=== PATIENT | male | born 1980 | race Asian ===

== ENCOUNTER 2017-11-19 23:35 | Emergency (ER) | payer OTHER | END 2017-11-20 00:46 | disposition home or self-care (01) | LOC: E/R 23:35 | DX: T82.838A Hemorrhage due to vascular prosthetic devices, implants and grafts, initial encounter (principal); I10 Essential (primary) hypertension; I25.10 Atherosclerotic heart disease of native coronary artery without angina pectoris; F17.210 Nicotine dependence, cigarettes, uncomplicated; Y82.8 Other medical devices associated with adverse incidents; Z95.1 Presence of aortocoronary bypass graft | CPT/HCPCS: 99282; Z7502 ==

== ENCOUNTER 2017-11-29 06:43 | Inpatient (IN) | payer OTHER ==
[2017-11-29 07:24] LABS: ADD MAN DIFF? NO
[2017-11-29 07:34] LABS: ABNORMAL IP MESSAGE 1; BASOPHILS % 0.6 % (0.0-2.0); EOSINOPHILS # 0.3 10^3/ul (0.0-0.5); EOSINOPHILS % 5.9 % (0.0-7.0); HEMATOCRIT 34.6 % (42.0-52.0); HEMOGLOBIN 10.6 g/dl (14.0-18.0); LYMPHOCYTES # 0.8 10^3/ul (0.8-2.9); LYMPHOCYTES % 16.3 % (15.0-51.0); MEAN CORPUSCULAR HEMOGLOBIN 31.7 pg (29.0-33.0); MEAN CORPUSCULAR HGB CONC 30.6 g/dl (32.0-37.0); MEAN CORPUSCULAR VOLUME 103.6 fl (82.0-101.0); MONOCYTES % 20.2 % (0.0-11.0); NEUTROPHIL # 2.8 10^3/ul (1.6-7.5); NEUTROPHILS % 56.8 % (39.0-77.0); PLATELET COUNT 85 10^3/UL (140-415); POSITIVE DIFF @See below; RED BLOOD COUNT 3.34 10^6/ul (4.70-6.10); RED CELL DISTRIBUTION WIDTH 14.6 % (11.5-14.5)
[2017-11-29 07:34] LABS: WHITE BLOOD COUNT 4.9 10^3/ul (4.8-10.8)
[2017-11-29 07:51] LABS: ALANINE AMINOTRANSFERASE 15 IU/L (13-69); ALBUMIN 3.6 g/dl (3.3-4.9); ALBUMIN/GLOBULIN RATIO 0.75; ALKALINE PHOSPHATASE 109 IU/L (42-121); ANION GAP 19 (8-16); ASPARTATE AMINO TRANSFERASE 19 IU/L (15-46); BILIRUBIN,INDIRECT 0.1 mg/dl (0-1.1); BILIRUBIN,TOTAL 0.1 mg/dl (0.2-1.3); BLOOD UREA NITROGEN 68 mg/dl (7-20); CALCIUM 8.7 mg/dl (8.4-10.2); CARBON DIOXIDE 19 mmol/L (21-31); CHLORIDE 110 mmol/L (97-110); CREATININE 9.81 mg/dl (0.61-1.24); GLUCOSE 85 mg/dl (70-220); POTASSIUM 5.6 mmol/L (3.5-5.1); SODIUM 142 mmol/L (135-144); TOTAL PROTEIN 8.4 g/dl (6.1-8.1)
[2017-11-29 08:02] LABS: TROPONIN-I 0.085 ng/ml (0.000-0.120)
[2017-11-29] MEDS: ALBUTEROL 0.083% (NEB) 2.5 MG/3 ML AMP NEB (08:08)
[2017-11-29] MEDS ORDERED: ACETAMINOPHEN 325 MG TAB PO ×2 (09:30→12:00)
[2017-11-29] MEDS ORDERED: ONDANSETRON 4 MG INJ IV ×2 (09:30→12:00)
[2017-11-29] MEDS: ACETAMINOPHEN 325 MG TAB PO (10:40)
[2017-11-29] MEDS ORDERED: morphine 2 MG INJ IV (12:00)
[2017-11-29] MEDS ORDERED: NACL 0.9% 3 ML SYG IV (12:00)
[2017-11-29] MEDS: LISINOPRIL 10 MG TAB PO (13:00)
[2017-11-29] MEDS: CALCIUM ACETATE 667 MG CAP PO ×2 (13:53→19:57)
[2017-11-29] MEDS: FAMOTIDINE 20 MG INJ IV (13:53)
[2017-11-29] MEDS: ASPIRIN (EC) 81 MG TAB PO (13:54)
[2017-11-29] MEDS: HEPARIN 5,000 UNIT/0.5 ML VIAL SC (13:55)
[2017-11-29 16:04] LABS: HEPATITIS B SURFACE ANTIBODY NEGATIVE (NEGATIVE)
[2017-11-29 16:10] LABS: HEPATITIS B SURFACE ANTIGEN NEGATIVE (NEGATIVE)
[2017-11-29] MEDS: HEPARIN 1000 UNITS/ML 10 ML INJ CATHETER (18:37)
[2017-11-29] MEDS ORDERED: morphine LIQ (10 MG/5 ML) CUP PO (20:00)
[2017-11-29] MEDS ORDERED: ATORVASTATIN 40 MG TAB PO (21:00)
[2017-11-29] MEDS ORDERED: VALPROIC ACID 250 MG CAP PO (21:00)
[2017-11-30] MEDS ORDERED: METOLAZONE 5 MG TAB PO (09:00)
[2017-11-30] MEDS ORDERED: FAMOTIDINE 20 MG INJ IV (09:00)
== END 2017-11-29 21:17 | disposition short-term general hospital (02) | DRG 186 ==
LOC: E/R 06:43 → MS3 09:08
PROC: 5A1D70Z Performance of Urinary Filtration, Intermittent, Less than 6 Hours Per Day (ICD-10-PCS; principal; 2017-11-29)
DX: J90 Pleural effusion, not elsewhere classified (principal); N18.6 End stage renal disease; I12.0 Hypertensive chronic kidney disease with stage 5 chronic kidney disease or end stage renal disease; Z99.2 Dependence on renal dialysis; I25.10 Atherosclerotic heart disease of native coronary artery without angina pectoris; Z95.1 Presence of aortocoronary bypass graft; F17.200 Nicotine dependence, unspecified, uncomplicated; Z86.73 Personal history of transient ischemic attack (TIA), and cerebral infarction without residual deficits; E87.5 Hyperkalemia; E87.70 Fluid overload, unspecified
CPT/HCPCS: 36415; 71045; 80053; 84484; 85025; 86706; 87340; 90935; 93005; 94664; 99285-25

== ENCOUNTER 2017-12-24 09:46 | Inpatient (IN) | payer OTHER ==
[2017-12-24] MEDS: SOD CHLORIDE 0.9% 1,000 ML IV (10:32)
[2017-12-24] MEDS: ACETAMINOPHEN 325 MG TAB PO (10:32)
[2017-12-24] MEDS: CEFEPIME 2GM/50 ML (PMX) 50 ML IVPB (10:32)
[2017-12-24 10:41] LABS: ADD MAN DIFF? NO
[2017-12-24 10:44] LABS: WHITE BLOOD COUNT 7.9 10^3/ul (4.8-10.8)
[2017-12-24 10:44] LABS: ABNORMAL IP MESSAGE 1; BASOPHILS % 0.3 % (0.0-2.0); EOSINOPHILS # 0.2 10^3/ul (0.0-0.5); EOSINOPHILS % 1.9 % (0.0-7.0); HEMATOCRIT 33.6 % (42.0-52.0); HEMOGLOBIN 10.3 g/dl (14.0-18.0); LYMPHOCYTES # 0.4 10^3/ul (0.8-2.9); LYMPHOCYTES % 5.3 % (15.0-51.0); MEAN CORPUSCULAR HEMOGLOBIN 32.4 pg (29.0-33.0); MEAN CORPUSCULAR HGB CONC 30.7 g/dl (32.0-37.0); MEAN CORPUSCULAR VOLUME 105.7 fl (82.0-101.0); MEAN PLATELET VOLUME 9.6 fl (7.4-10.4); MONOCYTE # 0.9 10^3/ul (0.3-0.9); MONOCYTES % 11.6 % (0.0-11.0); NEUTROPHIL # 6.4 10^3/ul (1.6-7.5); NEUTROPHILS % 80.5 % (39.0-77.0); PLATELET COUNT 122 10^3/UL (140-415); POSITIVE DIFF @See below; RED BLOOD COUNT 3.18 10^6/ul (4.70-6.10)
[2017-12-24 11:03] LABS: ALANINE AMINOTRANSFERASE 6 IU/L (13-69); ALBUMIN 3.3 g/dl (3.3-4.9); ALBUMIN/GLOBULIN RATIO 0.73; ALKALINE PHOSPHATASE 59 IU/L (42-121); ANION GAP 16 (8-16); ASPARTATE AMINO TRANSFERASE 18 IU/L (15-46); BILIRUBIN,INDIRECT 0.2 mg/dl (0-1.1); BILIRUBIN,TOTAL 0.2 mg/dl (0.2-1.3); BLOOD UREA NITROGEN 62 mg/dl (7-20); CARBON DIOXIDE 17 mmol/L (21-31); CHLORIDE 111 mmol/L (97-110); CREATININE 10.69 mg/dl (0.61-1.24); GLUCOSE 85 mg/dl (70-220); INR 1.11; PARTIAL THROMBOPLASTIN TIME 34.9 Sec (25.0-35.0); POTASSIUM 5.6 mmol/L (3.5-5.1); PROTIME 14.5 Sec (11.9-14.9); PT RATIO 1.1; SODIUM 138 mmol/L (135-144); TOTAL PROTEIN 7.8 g/dl (6.1-8.1)
[2017-12-24 11:03] LABS: LACTIC ACID 1.3 mmol/L (0.5-2.0)
[2017-12-24] MEDS: VANCOMYCIN 1 GM (PMX) 250 ML IVPB (11:05)
[2017-12-24 11:16] LABS: TROPONIN-I 0.085 ng/ml (0.000-0.120)
[2017-12-24 12:26] LABS: LACTIC ACID 0.8 mmol/L (0.5-2.0)
[2017-12-24] MEDS ORDERED: ACETAMINOPHEN 325 MG TAB PO (13:00)
[2017-12-24] MEDS ORDERED: ONDANSETRON 4 MG INJ IV (13:00)
[2017-12-24 14:18] LABS: LACTIC ACID 0.7 mmol/L (0.5-2.0)
[2017-12-24] MEDS ORDERED: VANCOMYCIN IV PER PHARMACY XX (17:00)
[2017-12-24] MEDS: ATORVASTATIN 40 MG TAB PO (20:30)
[2017-12-24] MEDS: CALCIUM ACETATE 667 MG CAP PO (20:30)
[2017-12-24] MEDS: VALPROIC ACID 250 MG CAP PO (20:31)
[2017-12-25] MEDS: LISINOPRIL 10 MG TAB PO (08:17)
[2017-12-25] MEDS: CALCIUM ACETATE 667 MG CAP PO ×2 (08:47→20:09)
[2017-12-25] MEDS: ASPIRIN (EC) 81 MG TAB PO (08:48)
[2017-12-25] MEDS: VALPROIC ACID 250 MG CAP PO ×2 (11:26→20:09)
[2017-12-25] MEDS: ALBUMIN HUMAN 25% 100 ML IV (11:39)
[2017-12-25] MEDS: HEPARIN 1000 UNITS/ML 10 ML INJ CATHETER (14:14)
[2017-12-25] MEDS: CEFEPIME 2GM/50 ML (PMX) 50 ML IVPB (14:17)
[2017-12-25] MEDS: MIDODRINE 5 MG TAB PO (18:00)
[2017-12-25] MEDS: ACETAMINOPHEN 325 MG TAB PO (20:09)
[2017-12-25] MEDS: ATORVASTATIN 40 MG TAB PO (21:00)
[2017-12-26 05:43] LABS: ADD MAN DIFF? NO
[2017-12-26 06:06] LABS: ABNORMAL IP MESSAGE 1; BASOPHILS % 0.3 % (0.0-2.0); EOSINOPHILS # 0.6 10^3/ul (0.0-0.5); EOSINOPHILS % 7.6 % (0.0-7.0); HEMATOCRIT 29.4 % (42.0-52.0); HEMOGLOBIN 8.9 g/dl (14.0-18.0); LYMPHOCYTES # 0.6 10^3/ul (0.8-2.9); LYMPHOCYTES % 7.1 % (15.0-51.0); MEAN CORPUSCULAR HGB CONC 30.3 g/dl (32.0-37.0); MEAN CORPUSCULAR VOLUME 105.8 fl (82.0-101.0); MEAN PLATELET VOLUME 9.9 fl (7.4-10.4); MONOCYTE # 1.7 10^3/ul (0.3-0.9); MONOCYTES % 21.6 % (0.0-11.0); NEUTROPHILS % 63.1 % (39.0-77.0); PLATELET COUNT 96 10^3/UL (140-415); POSITIVE DIFF @See below; RED BLOOD COUNT 2.78 10^6/ul (4.70-6.10); RED CELL DISTRIBUTION WIDTH 15.2 % (11.5-14.5)
[2017-12-26 06:06] LABS: WHITE BLOOD COUNT 7.9 10^3/ul (4.8-10.8)
[2017-12-26 06:10] LABS: INR 1.17; PROTIME 15.1 Sec (11.9-14.9); PT RATIO 1.2
[2017-12-26 06:10] LABS: VANCOMYCIN,RANDOM 7.8 ug/ml
[2017-12-26 06:11] LABS: PARTIAL THROMBOPLASTIN TIME 43.3 Sec (25.0-35.0)
[2017-12-26 06:16] LABS: ALANINE AMINOTRANSFERASE 7 IU/L (13-69); ALBUMIN 3.1 g/dl (3.3-4.9); ALBUMIN/GLOBULIN RATIO 0.77; ALKALINE PHOSPHATASE 55 IU/L (42-121); ANION GAP 13 (8-16); ASPARTATE AMINO TRANSFERASE 15 IU/L (15-46); BLOOD UREA NITROGEN 58 mg/dl (7-20); CALCIUM 8.7 mg/dl (8.4-10.2); CARBON DIOXIDE 24 mmol/L (21-31); CHLORIDE 107 mmol/L (97-110); CREATININE 8.63 mg/dl (0.61-1.24); GLUCOSE 82 mg/dl (70-220); POTASSIUM 4.7 mmol/L (3.5-5.1); SODIUM 139 mmol/L (135-144); TOTAL PROTEIN 7.1 g/dl (6.1-8.1)
[2017-12-26] MEDS: LIDOCAINE 1% (MDV) 10 ML INJ (10:33)
[2017-12-26] MEDS: CEFEPIME 2GM/50 ML (PMX) 50 ML IVPB (11:14)
[2017-12-26] MEDS: VALPROIC ACID 250 MG CAP PO ×2 (11:15→20:10)
[2017-12-26] MEDS: CALCIUM ACETATE 667 MG CAP PO ×2 (11:16→20:10)
[2017-12-26] MEDS: MIDODRINE 5 MG TAB PO ×2 (11:16→17:39)
[2017-12-26] MEDS: ASPIRIN (EC) 81 MG TAB PO (11:16)
[2017-12-26 12:47] LABS: FLD MN% 8.2 %; FLD PMN% 91.8 %; FLD RBC 32000 /uL; FLD WBC 2541 /cmm
[2017-12-26 13:06] LABS: FLD CLARITY CLOUDY; FLD COLOR RED
[2017-12-26 13:06] LABS: FLD TYPE THORACENTHESIS
[2017-12-26] MEDS: VANCOMYCIN 1.25 GM in SOD CHLORIDE 0.9% 250 ML IVPB (14:46)
[2017-12-26] MEDS: ATORVASTATIN 40 MG TAB PO (20:10)
[2017-12-27] MEDS: VALPROIC ACID 250 MG CAP PO ×2 (09:01→20:27)
[2017-12-27] MEDS: CALCIUM ACETATE 667 MG CAP PO ×2 (09:01→20:27)
[2017-12-27] MEDS: ASPIRIN (EC) 81 MG TAB PO (09:01)
[2017-12-27] MEDS: MIDODRINE 5 MG TAB PO ×2 (09:12→17:00)
[2017-12-27] MEDS: CEFEPIME 2GM/50 ML (PMX) 50 ML IVPB (09:14)
[2017-12-27] MEDS: HEPARIN 1000 UNITS/ML 10 ML INJ CATHETER (13:44)
[2017-12-27] MEDS: ATORVASTATIN 40 MG TAB PO (20:27)
[2017-12-27] MEDS: morphine 2 MG INJ IV (21:47)
[2017-12-27] MEDS: ZOLPIDEM 5 MG TAB PO (21:51)
[2017-12-28] MEDS: morphine 2 MG INJ IV ×2 (06:46→15:31)
[2017-12-28] MEDS: VALPROIC ACID 250 MG CAP PO ×2 (08:31→20:06)
[2017-12-28] MEDS: ASPIRIN (EC) 81 MG TAB PO (08:31)
[2017-12-28] MEDS: CALCIUM ACETATE 667 MG CAP PO ×2 (08:32→20:06)
[2017-12-28] MEDS: CEFEPIME 2GM/50 ML (PMX) 50 ML IVPB (08:33)
[2017-12-28] MEDS: ATORVASTATIN 40 MG TAB PO (20:06)
[2017-12-28] MEDS: morphine LIQ (10 MG/5 ML) CUP PO (20:07)
[2017-12-28] MEDS: ZOLPIDEM 5 MG TAB PO (21:30)
[2017-12-29 05:55] LABS: ADD MAN DIFF? NO
[2017-12-29 05:57] LABS: WHITE BLOOD COUNT 5.4 10^3/ul (4.8-10.8)
[2017-12-29 05:57] LABS: BASOPHILS % 0.7 % (0.0-2.0); EOSINOPHILS # 1.1 10^3/ul (0.0-0.5); EOSINOPHILS % 20.3 % (0.0-7.0); HEMATOCRIT 28.9 % (42.0-52.0); HEMOGLOBIN 8.6 g/dl (14.0-18.0); LYMPHOCYTES % 19.1 % (15.0-51.0); MEAN CORPUSCULAR HEMOGLOBIN 31.7 pg (29.0-33.0); MEAN CORPUSCULAR HGB CONC 29.8 g/dl (32.0-37.0); MEAN CORPUSCULAR VOLUME 106.6 fl (82.0-101.0); MEAN PLATELET VOLUME 10.5 fl (7.4-10.4); MONOCYTE # 0.9 10^3/ul (0.3-0.9); MONOCYTES % 17.5 % (0.0-11.0); NEUTROPHIL # 2.3 10^3/ul (1.6-7.5); NEUTROPHILS % 41.8 % (39.0-77.0); PLATELET COUNT 101 10^3/UL (140-415); RED BLOOD COUNT 2.71 10^6/ul (4.70-6.10); RED CELL DISTRIBUTION WIDTH 14.6 % (11.5-14.5)
[2017-12-29 06:29] LABS: ANION GAP 14 (8-16); BLOOD UREA NITROGEN 80 mg/dl (7-20); CALCIUM 8.8 mg/dl (8.4-10.2); CARBON DIOXIDE 24 mmol/L (21-31); CHLORIDE 107 mmol/L (97-110); CREATININE 10.26 mg/dl (0.61-1.24); GLUCOSE 81 mg/dl (70-220); POTASSIUM 5.2 mmol/L (3.5-5.1); SODIUM 140 mmol/L (135-144)
[2017-12-29] MEDS: morphine LIQ (10 MG/5 ML) CUP PO (08:00)
[2017-12-29] MEDS: ASPIRIN (EC) 81 MG TAB PO (09:08)
[2017-12-29] MEDS: CALCIUM ACETATE 667 MG CAP PO ×2 (09:09→20:29)
[2017-12-29] MEDS: CEFEPIME 2GM/50 ML (PMX) 50 ML IVPB (09:10)
[2017-12-29] MEDS: VALPROIC ACID 250 MG CAP PO ×2 (09:10→20:30)
[2017-12-29] MEDS: HYDROmorphONE 2 MG TAB PO ×2 (12:20→20:30)
[2017-12-29 12:26] LABS: HEPATITIS B SURFACE ANTIGEN NEGATIVE (NEGATIVE)
[2017-12-29] MEDS: ALBUMIN HUMAN 25% 100 ML IV (16:10)
[2017-12-29] MEDS: HEPARIN 1000 UNITS/ML 10 ML INJ CATHETER (18:36)
[2017-12-29] MEDS: VANCOMYCIN 1.25 GM in SOD CHLORIDE 0.9% 250 ML IVPB (19:48)
[2017-12-29] MEDS: ATORVASTATIN 40 MG TAB PO (20:29)
[2017-12-29] MEDS: ZOLPIDEM 5 MG TAB PO (21:49)
[2017-12-30] MEDS: HYDROmorphONE 2 MG TAB PO ×5 (01:46→21:17)
[2017-12-30] MEDS: VALPROIC ACID 250 MG CAP PO ×3 (03:10→21:00)
[2017-12-30] MEDS: CALCIUM ACETATE 667 MG CAP PO ×2 (09:53→21:18)
[2017-12-30] MEDS: ASPIRIN (EC) 81 MG TAB PO (09:53)
[2017-12-30] MEDS: CEFEPIME 2GM/50 ML (PMX) 50 ML IVPB (10:00)
[2017-12-30 15:36] LABS: VALPROATE 51 ug/ml (50-100)
[2017-12-30] MEDS: ATORVASTATIN 40 MG TAB PO (21:17)
[2017-12-31] MEDS: HYDROmorphONE 2 MG TAB PO ×5 (03:02→22:59)
[2017-12-31 05:52] LABS: ADD MAN DIFF? NO
[2017-12-31 05:56] LABS: WHITE BLOOD COUNT 6.6 10^3/ul (4.8-10.8)
[2017-12-31 05:56] LABS: BASOPHILS % 0.5 % (0.0-2.0); EOSINOPHILS % 15.3 % (0.0-7.0); HEMOGLOBIN 7.6 g/dl (14.0-18.0); LYMPHOCYTES # 1.3 10^3/ul (0.8-2.9); MEAN CORPUSCULAR HEMOGLOBIN 31.5 pg (29.0-33.0); MEAN CORPUSCULAR HGB CONC 29.2 g/dl (32.0-37.0); MEAN CORPUSCULAR VOLUME 107.9 fl (82.0-101.0); MEAN PLATELET VOLUME 10.5 fl (7.4-10.4); MONOCYTE # 1.4 10^3/ul (0.3-0.9); NEUTROPHIL # 2.8 10^3/ul (1.6-7.5); PLATELET COUNT 143 10^3/UL (140-415); POSITIVE DIFF @See below; RED BLOOD COUNT 2.41 10^6/ul (4.70-6.10); RED CELL DISTRIBUTION WIDTH 14.3 % (11.5-14.5)
[2017-12-31 06:12] LABS: ANION GAP 15 (8-16); BLOOD UREA NITROGEN 78 mg/dl (7-20); CALCIUM 8.9 mg/dl (8.4-10.2); CARBON DIOXIDE 26 mmol/L (21-31); CHLORIDE 103 mmol/L (97-110); CREATININE 9.47 mg/dl (0.61-1.24); GLUCOSE 83 mg/dl (70-220); POTASSIUM 5.3 mmol/L (3.5-5.1); SODIUM 139 mmol/L (135-144)
[2017-12-31 06:16] LABS: MONOCYTES % 20.6 % (0.0-11.0)
[2017-12-31] MEDS: ASPIRIN (EC) 81 MG TAB PO (09:51)
[2017-12-31] MEDS: CALCIUM ACETATE 667 MG CAP PO ×2 (09:51→22:04)
[2017-12-31] MEDS: CEFEPIME 2GM/50 ML (PMX) 50 ML IVPB (09:51)
[2017-12-31] MEDS: VALPROIC ACID 250 MG CAP PO ×2 (11:57→22:05)
[2017-12-31] MEDS: ACETAMINOPHEN 325 MG TAB PO (22:04)
[2017-12-31] MEDS: ATORVASTATIN 40 MG TAB PO (22:05)
[2018-01-01] MEDS: DIPHENHYDRAMINE 25 MG CAP PO ×3 (00:48→20:41)
[2018-01-01] MEDS: CALCIUM ACETATE 667 MG CAP PO ×2 (08:09→20:40)
[2018-01-01] MEDS: CEFEPIME 2GM/50 ML (PMX) 50 ML IVPB (08:10)
[2018-01-01] MEDS: ASPIRIN (EC) 81 MG TAB PO (08:31)
[2018-01-01] MEDS: VALPROIC ACID 250 MG CAP PO ×2 (09:24→20:40)
[2018-01-01] MEDS: HYDROmorphONE 1 MG/ML SYG IV ×2 (09:49)
[2018-01-01] MEDS: LIDOCAINE 1% (MPF) 5 ML VIAL (10:47)
[2018-01-01 16:23] LABS: FLUID TOTAL PROTEIN 4.8 g/dl
[2018-01-01] MEDS: HEPARIN 1000 UNITS/ML 10 ML INJ CATHETER (16:42)
[2018-01-01] MEDS: HYDROmorphONE 2 MG TAB PO ×2 (16:52→20:41)
[2018-01-01] MEDS: ATORVASTATIN 40 MG TAB PO (20:40)
[2018-01-02] MEDS: HYDROmorphONE 2 MG TAB PO ×4 (00:55→20:47)
[2018-01-02] MEDS: DIPHENHYDRAMINE 25 MG CAP PO ×2 (02:10→20:47)
[2018-01-02 05:10] LABS: WHITE BLOOD COUNT 6.4 10^3/ul (4.8-10.8)
[2018-01-02 05:10] LABS: HEMATOCRIT 24.9 % (42.0-52.0); HEMOGLOBIN 7.4 g/dl (14.0-18.0); MEAN CORPUSCULAR HEMOGLOBIN 31.5 pg (29.0-33.0); MEAN CORPUSCULAR HGB CONC 29.7 g/dl (32.0-37.0); MEAN PLATELET VOLUME 9.6 fl (7.4-10.4); PLATELET COUNT 182 10^3/UL (140-415); POSITIVE DIFF @See below; RED BLOOD COUNT 2.35 10^6/ul (4.70-6.10); RED CELL DISTRIBUTION WIDTH 14.3 % (11.5-14.5)
[2018-01-02 05:22] LABS: ANION GAP 16 (8-16); BLOOD UREA NITROGEN 53 mg/dl (7-20); CALCIUM 8.5 mg/dl (8.4-10.2); CARBON DIOXIDE 25 mmol/L (21-31); CHLORIDE 106 mmol/L (97-110); CREATININE 7.69 mg/dl (0.61-1.24); GLUCOSE 88 mg/dl (70-220); POTASSIUM 4.6 mmol/L (3.5-5.1); SODIUM 142 mmol/L (135-144)
[2018-01-02 05:40] LABS: ADD MAN DIFF? YES
[2018-01-02 07:45] LABS: ANISOCYTOSIS 1+ (0-0); BAND NEUTROPHILS % (M) 1 % (0-4); EOSINOPHILS % (M) 15 % (0-7); GIANT THROMBO% (M) 2 % (0-0); LYMPHOCYTES #M 1.4 10^3/ul (0.8-2.9); LYMPHOCYTES % (M) 22 % (15-51); MONOCYTE #M 1.7 10^3/ul (0.3-0.9); MONOCYTES % (M) 27 % (0-11); PLASMA CELLS #M 0.1 10^3/ul (0.0-0.0); PLASMAC%(M) 3 % (0); PLATELET ESTIMATE NORMAL; POIKILOCYTOSIS 1+ (0-0); POLYCHROMASIA 1+ (0-0); SEGMENTED NEUTROPHILS (M) % 32 % (39-77); SMUDGE%M 25 % (0-0)
[2018-01-02] MEDS: VALPROIC ACID 250 MG CAP PO ×2 (09:09→20:45)
[2018-01-02] MEDS: ASPIRIN (EC) 81 MG TAB PO (09:10)
[2018-01-02] MEDS: CALCIUM ACETATE 667 MG CAP PO ×2 (09:10→20:47)
[2018-01-02] MEDS: CEFEPIME 2GM/50 ML (PMX) 50 ML IVPB (09:13)
[2018-01-02] MEDS: VANCOMYCIN 1.25 GM in SOD CHLORIDE 0.9% 250 ML IVPB (18:07)
[2018-01-02] MEDS: ATORVASTATIN 40 MG TAB PO (20:47)
[2018-01-03 07:07] LABS: HEMATOCRIT 25.7 % (42.0-52.0); HEMOGLOBIN 7.6 g/dl (14.0-18.0); MEAN CORPUSCULAR HEMOGLOBIN 31.9 pg (29.0-33.0); MEAN CORPUSCULAR HGB CONC 29.6 g/dl (32.0-37.0); MEAN PLATELET VOLUME 9.3 fl (7.4-10.4); PLATELET COUNT 206 10^3/UL (140-415); RED BLOOD COUNT 2.38 10^6/ul (4.70-6.10); RED CELL DISTRIBUTION WIDTH 14.1 % (11.5-14.5)
[2018-01-03 07:07] LABS: WHITE BLOOD COUNT 6.5 10^3/ul (4.8-10.8)
[2018-01-03 07:19] LABS: ADD MAN DIFF? YES
[2018-01-03 07:26] LABS: ANION GAP 16 (8-16); BLOOD UREA NITROGEN 73 mg/dl (7-20); CALCIUM 8.9 mg/dl (8.4-10.2); CARBON DIOXIDE 23 mmol/L (21-31); CHLORIDE 107 mmol/L (97-110); CREATININE 10.06 mg/dl (0.61-1.24); GLUCOSE 90 mg/dl (70-220); POTASSIUM 5.5 mmol/L (3.5-5.1); SODIUM 140 mmol/L (135-144)
[2018-01-03 08:29] LABS: ANISOCYTOSIS 1+ (0-0); BAND NEUTROPHILS #M 0.2 10^3/ul (0.0-0.6); BAND NEUTROPHILS % (M) 4 % (0-4); EOSINOPHILS % (M) 9 % (0-7); LYMPHOCYTES #M 0.8 10^3/ul (0.8-2.9); LYMPHOCYTES % (M) 13 % (15-51); MONOCYTE #M 1.3 10^3/ul (0.3-0.9); MONOCYTES % (M) 20 % (0-11); PLATELET ESTIMATE NORMAL; REACTIVE LYMPHOCYTES% (M) 1 % (0-0); SEG NEUT #M 3.5 10^3/ul (1.6-7.5); SEGMENTED NEUTROPHILS (M) % 53 % (39-77); SMUDGE%M 7 % (0-0)
[2018-01-03] MEDS: CALCIUM ACETATE 667 MG CAP PO ×2 (09:32→21:23)
[2018-01-03] MEDS: ASPIRIN (EC) 81 MG TAB PO (09:32)
[2018-01-03] MEDS: VALPROIC ACID 250 MG CAP PO ×2 (09:33→21:23)
[2018-01-03] MEDS: HYDROmorphONE 2 MG TAB PO ×3 (09:55→23:52)
[2018-01-03] MEDS: CEFEPIME 2GM/50 ML (PMX) 50 ML IVPB (09:55)
[2018-01-03] MEDS: HEPARIN 1000 UNITS/ML 10 ML INJ CATHETER (16:06)
[2018-01-03 19:41] LABS: HIV 1&2 ANTIBODY NEGATIVE (NEGATIVE)
[2018-01-03] MEDS: ATORVASTATIN 40 MG TAB PO (21:24)
[2018-01-04 01:36] LABS: CREATINE KINASE 28 IU/L (23-200)
[2018-01-04 01:50] LABS: CK INDEX 1.8; CK-MB 0.51 ng/ml (0.0-2.4); TROPONIN-I 0.082 ng/ml (0.000-0.120)
[2018-01-04] MEDS: HYDROmorphONE 2 MG TAB PO ×3 (04:35→16:09)
[2018-01-04 07:19] LABS: ABNORMAL IP MESSAGE 1; HEMATOCRIT 23.7 % (42.0-52.0); MEAN CORPUSCULAR HEMOGLOBIN 31.8 pg (29.0-33.0); MEAN CORPUSCULAR HGB CONC 29.1 g/dl (32.0-37.0); MEAN CORPUSCULAR VOLUME 109.2 fl (82.0-101.0); MEAN PLATELET VOLUME 9.3 fl (7.4-10.4); PLATELET COUNT 214 10^3/UL (140-415); POSITIVE DIFF @See below; RED BLOOD COUNT 2.17 10^6/ul (4.70-6.10)
[2018-01-04 07:29] LABS: ADD MAN DIFF? YES; HEMOGLOBIN 6.9 g/dl (14.0-18.0)
[2018-01-04 07:43] LABS: CREATINE KINASE 31 IU/L (23-200)
[2018-01-04 07:47] LABS: ANION GAP 15 (8-16); BLOOD UREA NITROGEN 54 mg/dl (7-20); CALCIUM 8.5 mg/dl (8.4-10.2); CARBON DIOXIDE 26 mmol/L (21-31); CHLORIDE 106 mmol/L (97-110); CK INDEX 2.3; CK-MB 0.72 ng/ml (0.0-2.4); CREATININE 7.83 mg/dl (0.61-1.24); GLUCOSE 85 mg/dl (70-220); POTASSIUM 4.6 mmol/L (3.5-5.1); SODIUM 142 mmol/L (135-144); TROPONIN-I 0.095 ng/ml (0.000-0.120)
[2018-01-04] MEDS: VALPROIC ACID 250 MG CAP PO ×2 (08:43→20:28)
[2018-01-04] MEDS: CEFEPIME 1GM/50 ML (PMX) 50 ML IVPB (08:43)
[2018-01-04] MEDS: CALCIUM ACETATE 667 MG CAP PO ×2 (08:44→20:29)
[2018-01-04] MEDS: ASPIRIN (EC) 81 MG TAB PO (08:44)
[2018-01-04 10:17] LABS: BAND NEUTROPHILS #M 0.5 10^3/ul (0.0-0.6); BAND NEUTROPHILS % (M) 8 % (0-4); EOSINOPHILS % (M) 5 % (0-7); LYMPHOCYTES #M 1.4 10^3/ul (0.8-2.9); LYMPHOCYTES % (M) 21 % (15-51); METAMYELOCYTES %M 1 % (0-0); MONOCYTE #M 0.7 10^3/ul (0.3-0.9); MONOCYTES % (M) 11 % (0-11); PLATELET ESTIMATE NORMAL; POIKILOCYTOSIS 1+ (0-0); POLYCHROMASIA 3+ (0-0); SEG NEUT #M 3.8 10^3/ul (1.6-7.5); SEGMENTED NEUTROPHILS (M) % 54 % (39-77); SMUDGE%M 6 % (0-0)
[2018-01-04 10:32] LABS: IMMEDIATE SPIN CROSSMATCH 1 2
[2018-01-04] MEDS: ATORVASTATIN 40 MG TAB PO (20:28)
[2018-01-04] MEDS: DIPHENHYDRAMINE 25 MG CAP PO (20:40)
[2018-01-05] MEDS: CEFEPIME 1GM/50 ML (PMX) 50 ML IVPB (08:27)
[2018-01-05] MEDS: VALPROIC ACID 250 MG CAP PO ×2 (08:28→20:51)
[2018-01-05] MEDS: ASPIRIN (EC) 81 MG TAB PO (08:28)
[2018-01-05] MEDS: CALCIUM ACETATE 667 MG CAP PO ×2 (08:28→20:52)
[2018-01-05] MEDS: HEPARIN 1000 UNITS/ML 10 ML INJ CATHETER (14:21)
[2018-01-05] MEDS: ATORVASTATIN 40 MG TAB PO (20:52)
[2018-01-05] MEDS: HYDROmorphONE 2 MG TAB PO (20:56)
[2018-01-05 23:18] LABS: ADD MAN DIFF? NO
[2018-01-05 23:23] LABS: WHITE BLOOD COUNT 9.4 10^3/ul (4.8-10.8)
[2018-01-05 23:23] LABS: ABNORMAL IP MESSAGE 1; BASOPHILS % 0.2 % (0.0-2.0); EOSINOPHILS # 0.5 10^3/ul (0.0-0.5); EOSINOPHILS % 5.1 % (0.0-7.0); HEMATOCRIT 28.5 % (42.0-52.0); HEMOGLOBIN 8.6 g/dl (14.0-18.0); IMMATURE GRANS #M 0.02 10^3/ul; IMMATURE GRANS % (M) 0.2 %; LYMPHOCYTES # 0.8 10^3/ul (0.8-2.9); LYMPHOCYTES % 8.4 % (15.0-51.0); MEAN CORPUSCULAR HEMOGLOBIN 30.7 pg (29.0-33.0); MEAN CORPUSCULAR HGB CONC 30.2 g/dl (32.0-37.0); MEAN CORPUSCULAR VOLUME 101.8 fl (82.0-101.0); MEAN PLATELET VOLUME 9.2 fl (7.4-10.4); MONOCYTE # 1.6 10^3/ul (0.3-0.9); MONOCYTES % 17.5 % (0.0-11.0); NEUTROPHIL # 6.4 10^3/ul (1.6-7.5); NEUTROPHILS % 68.6 % (39.0-77.0); PLATELET COUNT 196 10^3/UL (140-415); POSITIVE DIFF @See below
[2018-01-06] MEDS: DIPHENHYDRAMINE 25 MG CAP PO (02:31)
[2018-01-06 06:26] LABS: ADD MAN DIFF? NO
[2018-01-06 06:34] LABS: ABNORMAL IP MESSAGE 1; BASOPHILS % 0.3 % (0.0-2.0); EOSINOPHILS # 0.5 10^3/ul (0.0-0.5); EOSINOPHILS % 5.1 % (0.0-7.0); HEMATOCRIT 27.3 % (42.0-52.0); HEMOGLOBIN 8.3 g/dl (14.0-18.0); IMMATURE GRANS #M 0.05 10^3/ul; IMMATURE GRANS % (M) 0.5 %; LYMPHOCYTES # 1.1 10^3/ul (0.8-2.9); LYMPHOCYTES % 11.7 % (15.0-51.0); MEAN CORPUSCULAR HEMOGLOBIN 30.6 pg (29.0-33.0); MEAN CORPUSCULAR HGB CONC 30.4 g/dl (32.0-37.0); MEAN CORPUSCULAR VOLUME 100.7 fl (82.0-101.0); MEAN PLATELET VOLUME 9.4 fl (7.4-10.4); MONOCYTE # 1.6 10^3/ul (0.3-0.9); MONOCYTES % 17.2 % (0.0-11.0); NEUTROPHIL # 6.2 10^3/ul (1.6-7.5); NEUTROPHILS % 65.2 % (39.0-77.0); PLATELET COUNT 197 10^3/UL (140-415); POSITIVE DIFF @See below; RED BLOOD COUNT 2.71 10^6/ul (4.70-6.10); RED CELL DISTRIBUTION WIDTH 16.6 % (11.5-14.5)
[2018-01-06 06:34] LABS: WHITE BLOOD COUNT 9.4 10^3/ul (4.8-10.8)
[2018-01-06 06:48] LABS: ANION GAP 15 (8-16); BLOOD UREA NITROGEN 56 mg/dl (7-20); CALCIUM 8.5 mg/dl (8.4-10.2); CARBON DIOXIDE 26 mmol/L (21-31); CHLORIDE 105 mmol/L (97-110); CREATININE 8.29 mg/dl (0.61-1.24); GLUCOSE 88 mg/dl (70-220); POTASSIUM 4.7 mmol/L (3.5-5.1); SODIUM 141 mmol/L (135-144)
[2018-01-06] MEDS: CEFEPIME 1GM/50 ML (PMX) 50 ML IVPB (09:47)
[2018-01-06] MEDS: ASPIRIN (EC) 81 MG TAB PO (09:48)
[2018-01-06] MEDS: CALCIUM ACETATE 667 MG CAP PO ×2 (09:48→20:35)
[2018-01-06] MEDS: VALPROIC ACID 250 MG CAP PO ×2 (09:48→20:34)
[2018-01-06 14:07] LABS: NIL 0.05 IU/mL; QUANTIFERON(R)-TB GOLD NEGATIVE (NEGATIVE)
[2018-01-06] MEDS: VANCOMYCIN 1.25 GM in SOD CHLORIDE 0.9% 250 ML IVPB (16:42)
[2018-01-06] MEDS: HYDROmorphONE 2 MG TAB PO (20:34)
[2018-01-06] MEDS: ATORVASTATIN 40 MG TAB PO (20:34)
[2018-01-07 06:13] LABS: ADD MAN DIFF? NO
[2018-01-07 06:20] LABS: WHITE BLOOD COUNT 7.9 10^3/ul (4.8-10.8)
[2018-01-07 06:20] LABS: BASOPHILS % 0.4 % (0.0-2.0); EOSINOPHILS # 0.5 10^3/ul (0.0-0.5); EOSINOPHILS % 6.3 % (0.0-7.0); HEMATOCRIT 28.3 % (42.0-52.0); HEMOGLOBIN 8.7 g/dl (14.0-18.0); IMMATURE GRANS #M 0.03 10^3/ul; IMMATURE GRANS % (M) 0.4 %; LYMPHOCYTES # 1.2 10^3/ul (0.8-2.9); LYMPHOCYTES % 14.7 % (15.0-51.0); MEAN CORPUSCULAR HEMOGLOBIN 31.9 pg (29.0-33.0); MEAN CORPUSCULAR HGB CONC 30.7 g/dl (32.0-37.0); MEAN CORPUSCULAR VOLUME 103.7 fl (82.0-101.0); MEAN PLATELET VOLUME 9.3 fl (7.4-10.4); MONOCYTE # 1.1 10^3/ul (0.3-0.9); MONOCYTES % 14.4 % (0.0-11.0); NEUTROPHILS % 63.8 % (39.0-77.0); PLATELET COUNT 183 10^3/UL (140-415); RED BLOOD COUNT 2.73 10^6/ul (4.70-6.10)
[2018-01-07 06:47] LABS: ANION GAP 13 (8-16); BLOOD UREA NITROGEN 74 mg/dl (7-20); CALCIUM 8.6 mg/dl (8.4-10.2); CARBON DIOXIDE 26 mmol/L (21-31); CHLORIDE 107 mmol/L (97-110); CREATININE 10.07 mg/dl (0.61-1.24); GLUCOSE 86 mg/dl (70-220); POTASSIUM 5.4 mmol/L (3.5-5.1); SODIUM 141 mmol/L (135-144)
[2018-01-07] MEDS: NA POLYST SULFON 15 GM/60 ML BTL PO (08:30)
[2018-01-07] MEDS: ACETAMINOPHEN 325 MG TAB PO (08:30)
[2018-01-07] MEDS: DIPHENHYDRAMINE 50 MG INJ IV (08:30)
[2018-01-07] MEDS: CEFEPIME 1GM/50 ML (PMX) 50 ML IVPB (10:03)
[2018-01-07] MEDS: CALCIUM ACETATE 667 MG CAP PO ×2 (10:08→21:37)
[2018-01-07] MEDS: ASPIRIN (EC) 81 MG TAB PO (10:08)
[2018-01-07] MEDS: VALPROIC ACID 250 MG CAP PO ×2 (10:09→21:38)
[2018-01-07] MEDS: SOD CHLORIDE 0.9% 250 ML IV* (11:20)
[2018-01-07] MEDS: HEPARIN 1000 UNITS/ML 10 ML INJ CATHETER (14:37)
[2018-01-07] MEDS: HYDROmorphONE 2 MG TAB PO ×2 (16:22→21:38)
[2018-01-07] MEDS: EPOETIN 3000 UNITS/1 ML INJ (ESRD) SC (16:23)
[2018-01-07 17:34] LABS: ADD MAN DIFF? NO
[2018-01-07 17:38] LABS: ABNORMAL IP MESSAGE 1; BASOPHILS % 0.3 % (0.0-2.0); EOSINOPHILS # 0.5 10^3/ul (0.0-0.5); EOSINOPHILS % 6.1 % (0.0-7.0); HEMATOCRIT 32.4 % (42.0-52.0); HEMOGLOBIN 10.3 g/dl (14.0-18.0); IMMATURE GRANS #M 0.03 10^3/ul; IMMATURE GRANS % (M) 0.4 %; LYMPHOCYTES # 0.6 10^3/ul (0.8-2.9); LYMPHOCYTES % 7.4 % (15.0-51.0); MEAN CORPUSCULAR HGB CONC 31.8 g/dl (32.0-37.0); MEAN CORPUSCULAR VOLUME 97.6 fl (82.0-101.0); MEAN PLATELET VOLUME 8.7 fl (7.4-10.4); MONOCYTE # 0.6 10^3/ul (0.3-0.9); MONOCYTES % 8.2 % (0.0-11.0); NEUTROPHIL # 6.1 10^3/ul (1.6-7.5); NEUTROPHILS % 77.6 % (39.0-77.0); PLATELET COUNT 167 10^3/UL (140-415); POSITIVE DIFF @See below; RED BLOOD COUNT 3.32 10^6/ul (4.70-6.10); RED CELL DISTRIBUTION WIDTH 17.5 % (11.5-14.5)
[2018-01-07 17:38] LABS: WHITE BLOOD COUNT 7.8 10^3/ul (4.8-10.8)
[2018-01-07] MEDS ORDERED: hydrALAzine 20 MG INJ IV (20:00)
[2018-01-07] MEDS: DIPHENHYDRAMINE 25 MG CAP PO (21:38)
[2018-01-07] MEDS: ATORVASTATIN 40 MG TAB PO (21:39)
[2018-01-08 04:54] LABS: ADD MAN DIFF? NO
[2018-01-08 04:57] LABS: BASOPHILS % 0.5 % (0.0-2.0); EOSINOPHILS # 0.5 10^3/ul (0.0-0.5); EOSINOPHILS % 6.6 % (0.0-7.0); HEMATOCRIT 31.1 % (42.0-52.0); HEMOGLOBIN 9.9 g/dl (14.0-18.0); IMMATURE GRANS #M 0.04 10^3/ul; IMMATURE GRANS % (M) 0.5 %; LYMPHOCYTES # 1.1 10^3/ul (0.8-2.9); LYMPHOCYTES % 14.3 % (15.0-51.0); MEAN CORPUSCULAR HEMOGLOBIN 30.9 pg (29.0-33.0); MEAN CORPUSCULAR HGB CONC 31.8 g/dl (32.0-37.0); MEAN CORPUSCULAR VOLUME 97.2 fl (82.0-101.0); MONOCYTE # 1.3 10^3/ul (0.3-0.9); MONOCYTES % 16.1 % (0.0-11.0); NEUTROPHIL # 4.8 10^3/ul (1.6-7.5); PLATELET COUNT 163 10^3/UL (140-415); RED CELL DISTRIBUTION WIDTH 17.3 % (11.5-14.5)
[2018-01-08 04:57] LABS: WHITE BLOOD COUNT 7.7 10^3/ul (4.8-10.8)
[2018-01-08 05:29] LABS: ANION GAP 15 (8-16); BLOOD UREA NITROGEN 55 mg/dl (7-20); CALCIUM 8.6 mg/dl (8.4-10.2); CARBON DIOXIDE 27 mmol/L (21-31); CHLORIDE 104 mmol/L (97-110); GLUCOSE 85 mg/dl (70-220); POTASSIUM 4.8 mmol/L (3.5-5.1); SODIUM 141 mmol/L (135-144)
[2018-01-08] MEDS ORDERED: DEXAMETHASONE 4 MG/ML 1 ML INJ (07:00)
[2018-01-08] MEDS ORDERED: CA CHLORIDE 10% 10 ML SYRINGE (07:00)
[2018-01-08] MEDS ORDERED: ACETAMINOPHEN 1000 MG/100 ML IVPB (07:00)
[2018-01-08] MEDS ORDERED: METOCLOPRAMIDE 10 MG INJ (07:00)
[2018-01-08] MEDS ORDERED: ALBUMIN HUMAN 25% 100 ML INJ (07:00)
[2018-01-08] MEDS ORDERED: BUPIVACAINE 0.5%/EPI (SDV) 30 ML INJ (07:08)
[2018-01-08] MEDS ORDERED: LIDOCAINE 0.5% (MDV) 50 ML INJ (07:08)
[2018-01-08] MEDS ORDERED: MIDAZOLAM 1 MG/ML 2 ML INJ (08:49)
[2018-01-08] MEDS ORDERED: FENTAnyl 50 MCG/ML VIAL (08:50)
[2018-01-08] MEDS ORDERED: MINERAL OIL LIGHT 10 ML VIAL (08:52)
[2018-01-08] MEDS: ASPIRIN (EC) 81 MG TAB PO (09:00)
[2018-01-08] MEDS: VALPROIC ACID 250 MG CAP PO ×3 (09:00→22:46)
[2018-01-08] MEDS: CALCIUM ACETATE 667 MG CAP PO ×3 (09:00→22:46)
[2018-01-08] MEDS ORDERED: PROPOFOL 20 ML (09:48)
[2018-01-08] MEDS ORDERED: LIDOCAINE 2% (SDV) 5 ML INJ (09:48)
[2018-01-08] MEDS ORDERED: ROCURONIUM 50 MG INJ (09:48)
[2018-01-08] MEDS ORDERED: ONDANSETRON 4 MG INJ (09:48)
[2018-01-08] MEDS ORDERED: HALOPERIDOL 5 MG INJ IV (10:30)
[2018-01-08] MEDS ORDERED: HYDROmorphONE 0.5 MG/0.5 ML SYG IV ×2 (10:30)
[2018-01-08] MEDS ORDERED: DIPHENHYDRAMINE 50 MG INJ IV (10:30)
[2018-01-08] MEDS ORDERED: NALOXONE (0.4 MG/ML) INJ IV (10:30)
[2018-01-08] MEDS ORDERED: FENTAnyl 50 MCG/ML VIAL IV ×2 (10:30)
[2018-01-08] MEDS ORDERED: MIDAZOLAM 1 MG/ML 2 ML INJ IV (10:30)
[2018-01-08] MEDS ORDERED: IPRATROPIUM (NEB) 0.5 MG/2.5 ML AMP HHN (10:30)
[2018-01-08] MEDS: DESMOPRESSIN 27 MCG in SOD CHLORIDE 0.9% 50 ML IV (10:30)
[2018-01-08] MEDS ORDERED: FENTAnyl 2MCG/ML-ROPIV 0.2% 100 ML BAG EPI (10:30)
[2018-01-08] MEDS ORDERED: ONDANSETRON 4 MG INJ IV ×2 (10:30)
[2018-01-08] MEDS ORDERED: LABETALOL HCL 20MG INJ IV (10:30)
[2018-01-08] MEDS ORDERED: LEVALBUTEROL (NEB) 0.63 MG/3 ML AMP HHN (10:30)
[2018-01-08] MEDS ORDERED: LORAZEPAM 2 MG INJ IV (10:30)
[2018-01-08] MEDS: SOD CHLORIDE 0.9% 250 ML IV* (11:02)
[2018-01-08 11:35] LABS: IMMEDIATE SPIN CROSSMATCH 1 7
[2018-01-08] MEDS ORDERED: ROPIVACAINE 0.5 % 30 ML VIAL (11:51)
[2018-01-08] MEDS ORDERED: SUGAMMADEX SODIUM 200 MG/2 ML VIAL IV (12:16)
[2018-01-08] MEDS ORDERED: PROVENTIL HFA 6.7GM INHALER (12:18)
[2018-01-08] MEDS: HYDROmorphONE 0.5 MG/0.5 ML SYG IV ×6 (12:43→19:42)
[2018-01-08] MEDS: hydrALAzine 20 MG INJ IV (13:32)
[2018-01-08] MEDS: HYDROCODONE/APAP (5/325) TAB PO ×2 (17:30→22:45)
[2018-01-08] MEDS: EPOETIN 3000 UNITS/1 ML INJ (ESRD) SC (19:04)
[2018-01-08] MEDS: ATORVASTATIN 40 MG TAB PO ×2 (21:00→22:46)
[2018-01-08] MEDS: ALTEPLASE (CATHFLO) 2 MG INJ CATHETER (21:43)
[2018-01-09] MEDS: HYDROmorphONE 0.5 MG/0.5 ML SYG IV ×8 (00:35→20:20)
[2018-01-09] MEDS: ZOLPIDEM 5 MG TAB PO ×2 (00:40→21:51)
[2018-01-09 06:16] LABS: ADD MAN DIFF? NO
[2018-01-09 06:23] LABS: BASOPHIL # 0.1 10^3/ul (0.0-0.1); BASOPHILS % 0.5 % (0.0-2.0); EOSINOPHILS # 0.1 10^3/ul (0.0-0.5); EOSINOPHILS % 0.7 % (0.0-7.0); HEMATOCRIT 35.2 % (42.0-52.0); IMMATURE GRANS #M 0.03 10^3/ul; IMMATURE GRANS % (M) 0.3 %; LYMPHOCYTES # 0.7 10^3/ul (0.8-2.9); LYMPHOCYTES % 6.4 % (15.0-51.0); MEAN CORPUSCULAR HEMOGLOBIN 30.1 pg (29.0-33.0); MEAN CORPUSCULAR HGB CONC 31.3 g/dl (32.0-37.0); MEAN CORPUSCULAR VOLUME 96.4 fl (82.0-101.0); MEAN PLATELET VOLUME 9.3 fl (7.4-10.4); MONOCYTE # 1.2 10^3/ul (0.3-0.9); MONOCYTES % 11.7 % (0.0-11.0); NEUTROPHIL # 8.1 10^3/ul (1.6-7.5); NEUTROPHILS % 80.4 % (39.0-77.0); PLATELET COUNT 144 10^3/UL (140-415); RED BLOOD COUNT 3.65 10^6/ul (4.70-6.10); RED CELL DISTRIBUTION WIDTH 16.6 % (11.5-14.5)
[2018-01-09 06:23] LABS: WHITE BLOOD COUNT 10.1 10^3/ul (4.8-10.8)
[2018-01-09 06:56] LABS: ANION GAP 19 (8-16); BLOOD UREA NITROGEN 64 mg/dl (7-20); CARBON DIOXIDE 22 mmol/L (21-31); CHLORIDE 105 mmol/L (97-110); GLUCOSE 89 mg/dl (70-220); POTASSIUM 5.7 mmol/L (3.5-5.1); SODIUM 140 mmol/L (135-144)
[2018-01-09] MEDS: ASPIRIN (EC) 81 MG TAB PO (08:33)
[2018-01-09] MEDS: DIPHENHYDRAMINE 50 MG INJ IV (11:48)
[2018-01-09] MEDS: HYDROmorphONE 1 MG/ML SYG IV ×3 (13:29→21:53)
[2018-01-09] MEDS: HYDROCODONE/APAP (5/325) TAB PO (19:48)
[2018-01-09] MEDS: VALPROIC ACID 250 MG CAP PO (21:41)
[2018-01-09] MEDS: CALCIUM ACETATE 667 MG CAP PO (21:42)
[2018-01-10] MEDS: HEPARIN 1000 UNITS/ML 10 ML INJ CATHETER (02:32)
[2018-01-10] MEDS: HYDROmorphONE 0.5 MG/0.5 ML SYG IV ×3 (02:43→07:30)
[2018-01-10] MEDS: CALCIUM ACETATE 667 MG CAP PO ×2 (09:29→21:28)
[2018-01-10] MEDS: HYDROmorphONE 1 MG/ML SYG IV ×5 (09:29→21:28)
[2018-01-10] MEDS: ASPIRIN (EC) 81 MG TAB PO (09:30)
[2018-01-10] MEDS: VALPROIC ACID 250 MG CAP PO ×2 (09:30→21:27)
[2018-01-10] MEDS: HYDROCODONE/APAP (5/325) TAB PO (10:52)
[2018-01-10 11:56] LABS: ADD MAN DIFF? NO
[2018-01-10 12:08] LABS: BASOPHILS % 0.3 % (0.0-2.0); EOSINOPHILS # 0.6 10^3/ul (0.0-0.5); EOSINOPHILS % 6.6 % (0.0-7.0); HEMATOCRIT 27.8 % (42.0-52.0); HEMOGLOBIN 8.9 g/dl (14.0-18.0); LYMPHOCYTES % 11.1 % (15.0-51.0); MEAN CORPUSCULAR VOLUME 96.9 fl (82.0-101.0); MEAN PLATELET VOLUME 9.3 fl (7.4-10.4); MONOCYTE # 1.2 10^3/ul (0.3-0.9); MONOCYTES % 14.3 % (0.0-11.0); NEUTROPHIL # 5.8 10^3/ul (1.6-7.5); NEUTROPHILS % 67.4 % (39.0-77.0); PLATELET COUNT 125 10^3/UL (140-415); RED BLOOD COUNT 2.87 10^6/ul (4.70-6.10); RED CELL DISTRIBUTION WIDTH 16.1 % (11.5-14.5)
[2018-01-10 12:08] LABS: WHITE BLOOD COUNT 8.7 10^3/ul (4.8-10.8)
[2018-01-10 12:24] LABS: ANION GAP 15 (8-16); BLOOD UREA NITROGEN 54 mg/dl (7-20); CALCIUM 8.5 mg/dl (8.4-10.2); CARBON DIOXIDE 27 mmol/L (21-31); CHLORIDE 101 mmol/L (97-110); GLUCOSE 88 mg/dl (70-220); MAGNESIUM 1.9 mg/dl (1.7-2.5); PHOSPHORUS 6.2 mg/dl (2.5-4.9); POTASSIUM 4.6 mmol/L (3.5-5.1); SODIUM 138 mmol/L (135-144)
[2018-01-10] MEDS: EPOETIN 3000 UNITS/1 ML INJ (ESRD) SC (18:28)
[2018-01-10] MEDS: ATORVASTATIN 40 MG TAB PO (21:28)
[2018-01-11] MEDS: HYDROmorphONE 1 MG/ML SYG IV ×7 (02:03→21:44)
[2018-01-11] MEDS: HYDROCODONE/APAP (5/325) TAB PO ×2 (05:48→10:52)
[2018-01-11 06:19] LABS: ADD MAN DIFF? NO
[2018-01-11 06:38] LABS: WHITE BLOOD COUNT 7.9 10^3/ul (4.8-10.8)
[2018-01-11 06:38] LABS: BASOPHILS % 0.4 % (0.0-2.0); EOSINOPHILS # 0.8 10^3/ul (0.0-0.5); EOSINOPHILS % 9.9 % (0.0-7.0); HEMATOCRIT 26.2 % (42.0-52.0); HEMOGLOBIN 8.1 g/dl (14.0-18.0); LYMPHOCYTES # 0.9 10^3/ul (0.8-2.9); LYMPHOCYTES % 11.8 % (15.0-51.0); MEAN CORPUSCULAR HEMOGLOBIN 30.2 pg (29.0-33.0); MEAN CORPUSCULAR HGB CONC 30.9 g/dl (32.0-37.0); MEAN CORPUSCULAR VOLUME 97.8 fl (82.0-101.0); MEAN PLATELET VOLUME 9.4 fl (7.4-10.4); MONOCYTE # 1.2 10^3/ul (0.3-0.9); MONOCYTES % 15.1 % (0.0-11.0); NEUTROPHIL # 4.9 10^3/ul (1.6-7.5); NEUTROPHILS % 62.5 % (39.0-77.0); PLATELET COUNT 123 10^3/UL (140-415); RED BLOOD COUNT 2.68 10^6/ul (4.70-6.10); RED CELL DISTRIBUTION WIDTH 15.9 % (11.5-14.5)
[2018-01-11 07:02] LABS: ANION GAP 16 (8-16); BLOOD UREA NITROGEN 72 mg/dl (7-20); CALCIUM 8.5 mg/dl (8.4-10.2); CARBON DIOXIDE 26 mmol/L (21-31); CHLORIDE 101 mmol/L (97-110); CREATININE 9.95 mg/dl (0.61-1.24); GLUCOSE 84 mg/dl (70-220); POTASSIUM 4.5 mmol/L (3.5-5.1); SODIUM 138 mmol/L (135-144)
[2018-01-11] MEDS: ASPIRIN (EC) 81 MG TAB PO (08:55)
[2018-01-11] MEDS: VALPROIC ACID 250 MG CAP PO ×2 (08:55→20:55)
[2018-01-11] MEDS: CALCIUM ACETATE 667 MG CAP PO ×2 (08:57→20:51)
[2018-01-11] MEDS: ATORVASTATIN 40 MG TAB PO (20:51)
[2018-01-11] MEDS: DIPHENHYDRAMINE 25 MG CAP PO (22:28)
[2018-01-12] MEDS: HYDROmorphONE 1 MG/ML SYG IV ×10 (01:17→23:33)
[2018-01-12] MEDS: CALCIUM ACETATE 667 MG CAP PO ×2 (09:34→21:04)
[2018-01-12] MEDS: VALPROIC ACID 250 MG CAP PO ×2 (09:35→21:04)
[2018-01-12] MEDS: ASPIRIN (EC) 81 MG TAB PO (09:35)
[2018-01-12] MEDS: ALBUMIN HUMAN 25% 100 ML IV (13:59)
[2018-01-12] MEDS: HEPARIN 1000 UNITS/ML 10 ML INJ CATHETER (15:11)
[2018-01-12] MEDS: EPOETIN 3000 UNITS/1 ML INJ (ESRD) SC (15:14)
[2018-01-12] MEDS: ATORVASTATIN 40 MG TAB PO (21:04)
[2018-01-13] MEDS: HYDROmorphONE 1 MG/ML SYG IV ×6 (03:34→21:17)
[2018-01-13] MEDS: HYDROCODONE/APAP (5/325) TAB PO (04:34)
[2018-01-13 05:50] LABS: ADD MAN DIFF? NO
[2018-01-13 05:57] LABS: WHITE BLOOD COUNT 7.2 10^3/ul (4.8-10.8)
[2018-01-13 05:57] LABS: BASOPHILS % 0.4 % (0.0-2.0); EOSINOPHILS # 0.7 10^3/ul (0.0-0.5); EOSINOPHILS % 10.2 % (0.0-7.0); HEMATOCRIT 25.9 % (42.0-52.0); HEMOGLOBIN 8.2 g/dl (14.0-18.0); LYMPHOCYTES % 13.2 % (15.0-51.0); MEAN CORPUSCULAR HEMOGLOBIN 30.6 pg (29.0-33.0); MEAN CORPUSCULAR HGB CONC 31.7 g/dl (32.0-37.0); MEAN CORPUSCULAR VOLUME 96.6 fl (82.0-101.0); MONOCYTE # 1.3 10^3/ul (0.3-0.9); MONOCYTES % 17.5 % (0.0-11.0); NEUTROPHIL # 4.2 10^3/ul (1.6-7.5); NEUTROPHILS % 58.6 % (39.0-77.0); PLATELET COUNT 118 10^3/UL (140-415); RED BLOOD COUNT 2.68 10^6/ul (4.70-6.10); RED CELL DISTRIBUTION WIDTH 15.7 % (11.5-14.5)
[2018-01-13 06:33] LABS: ANION GAP 14 (8-16); BLOOD UREA NITROGEN 57 mg/dl (7-20); CALCIUM 8.5 mg/dl (8.4-10.2); CARBON DIOXIDE 28 mmol/L (21-31); CHLORIDE 100 mmol/L (97-110); CREATININE 9.18 mg/dl (0.61-1.24); GLUCOSE 82 mg/dl (70-220); POTASSIUM 4.2 mmol/L (3.5-5.1); SODIUM 138 mmol/L (135-144)
[2018-01-13 06:44] LABS: MAGNESIUM 1.9 mg/dl (1.7-2.5)
[2018-01-13] MEDS: CALCIUM ACETATE 667 MG CAP PO ×2 (09:00→21:15)
[2018-01-13] MEDS: ASPIRIN (EC) 81 MG TAB PO (09:02)
[2018-01-13] MEDS: VALPROIC ACID 250 MG CAP PO ×2 (09:02→21:16)
[2018-01-13] MEDS: ATORVASTATIN 40 MG TAB PO (21:16)
[2018-01-14] MEDS: HYDROmorphONE 1 MG/ML SYG IV ×9 (00:26→22:04)
[2018-01-14 05:43] LABS: ADD MAN DIFF? NO
[2018-01-14 05:56] LABS: WHITE BLOOD COUNT 6.3 10^3/ul (4.8-10.8)
[2018-01-14 05:56] LABS: BASOPHILS % 0.3 % (0.0-2.0); EOSINOPHILS # 0.8 10^3/ul (0.0-0.5); EOSINOPHILS % 13.3 % (0.0-7.0); HEMATOCRIT 26.4 % (42.0-52.0); HEMOGLOBIN 8.5 g/dl (14.0-18.0); LYMPHOCYTES # 0.9 10^3/ul (0.8-2.9); LYMPHOCYTES % 14.4 % (15.0-51.0); MEAN CORPUSCULAR HGB CONC 32.2 g/dl (32.0-37.0); MEAN CORPUSCULAR VOLUME 96.4 fl (82.0-101.0); MEAN PLATELET VOLUME 9.1 fl (7.4-10.4); MONOCYTE # 1.1 10^3/ul (0.3-0.9); MONOCYTES % 17.7 % (0.0-11.0); NEUTROPHIL # 3.4 10^3/ul (1.6-7.5); PLATELET COUNT 132 10^3/UL (140-415); RED BLOOD COUNT 2.74 10^6/ul (4.70-6.10); RED CELL DISTRIBUTION WIDTH 15.2 % (11.5-14.5)
[2018-01-14 06:13] LABS: ANION GAP 19 (8-16); BLOOD UREA NITROGEN 75 mg/dl (7-20); CALCIUM 8.6 mg/dl (8.4-10.2); CARBON DIOXIDE 25 mmol/L (21-31); CHLORIDE 99 mmol/L (97-110); CREATININE 11.52 mg/dl (0.61-1.24); GLUCOSE 80 mg/dl (70-220); POTASSIUM 4.8 mmol/L (3.5-5.1); SODIUM 138 mmol/L (135-144)
[2018-01-14] MEDS: CALCIUM ACETATE 667 MG CAP PO ×2 (09:03→20:08)
[2018-01-14] MEDS: ASPIRIN (EC) 81 MG TAB PO (09:04)
[2018-01-14] MEDS: VALPROIC ACID 250 MG CAP PO ×2 (09:05→20:09)
[2018-01-14] MEDS: ATORVASTATIN 40 MG TAB PO (20:09)
[2018-01-15] MEDS: HYDROmorphONE 1 MG/ML SYG IV ×8 (00:13→23:53)
[2018-01-15 05:44] LABS: ADD MAN DIFF? NO
[2018-01-15 05:53] LABS: BASOPHILS % 0.3 % (0.0-2.0); EOSINOPHILS # 0.8 10^3/ul (0.0-0.5); EOSINOPHILS % 11.6 % (0.0-7.0); HEMATOCRIT 25.4 % (42.0-52.0); HEMOGLOBIN 8.2 g/dl (14.0-18.0); LYMPHOCYTES # 1.1 10^3/ul (0.8-2.9); LYMPHOCYTES % 15.8 % (15.0-51.0); MEAN CORPUSCULAR HEMOGLOBIN 31.5 pg (29.0-33.0); MEAN CORPUSCULAR HGB CONC 32.3 g/dl (32.0-37.0); MEAN CORPUSCULAR VOLUME 97.7 fl (82.0-101.0); MEAN PLATELET VOLUME 9.2 fl (7.4-10.4); MONOCYTE # 1.1 10^3/ul (0.3-0.9); MONOCYTES % 16.1 % (0.0-11.0); NEUTROPHIL # 3.8 10^3/ul (1.6-7.5); NEUTROPHILS % 55.8 % (39.0-77.0); PLATELET COUNT 125 10^3/UL (140-415); RED CELL DISTRIBUTION WIDTH 15.4 % (11.5-14.5)
[2018-01-15 05:53] LABS: WHITE BLOOD COUNT 6.8 10^3/ul (4.8-10.8)
[2018-01-15 06:45] LABS: ANION GAP 20 (8-16); BLOOD UREA NITROGEN 100 mg/dl (7-20); CALCIUM 8.4 mg/dl (8.4-10.2); CARBON DIOXIDE 24 mmol/L (21-31); CHLORIDE 99 mmol/L (97-110); GLUCOSE 92 mg/dl (70-220); SODIUM 138 mmol/L (135-144)
[2018-01-15 06:55] LABS: CREATININE 13.12 mg/dl (0.61-1.24)
[2018-01-15] MEDS: CALCIUM ACETATE 667 MG CAP PO ×2 (08:05→20:44)
[2018-01-15] MEDS: VALPROIC ACID 250 MG CAP PO ×2 (08:05→20:44)
[2018-01-15] MEDS: ASPIRIN (EC) 81 MG TAB PO (08:05)
[2018-01-15] MEDS: DIPHENHYDRAMINE 25 MG CAP PO ×2 (09:14→20:51)
[2018-01-15] MEDS: EPOETIN 3000 UNITS/1 ML INJ (ESRD) SC (17:56)
[2018-01-15] MEDS: ATORVASTATIN 40 MG TAB PO (20:43)
[2018-01-15] MEDS: HEPARIN 1000 UNITS/ML 10 ML INJ CATHETER (23:51)
[2018-01-16] MEDS: HYDROmorphONE 1 MG/ML SYG IV ×9 (02:30→22:43)
[2018-01-16] MEDS: DIPHENHYDRAMINE 25 MG CAP PO ×2 (03:52→17:23)
[2018-01-16 06:14] LABS: ADD MAN DIFF? NO
[2018-01-16 06:23] LABS: BASOPHILS % 0.2 % (0.0-2.0); EOSINOPHILS # 0.6 10^3/ul (0.0-0.5); EOSINOPHILS % 10.6 % (0.0-7.0); HEMATOCRIT 27.6 % (42.0-52.0); HEMOGLOBIN 8.8 g/dl (14.0-18.0); LYMPHOCYTES # 0.6 10^3/ul (0.8-2.9); LYMPHOCYTES % 10.8 % (15.0-51.0); MEAN CORPUSCULAR HGB CONC 31.9 g/dl (32.0-37.0); MEAN CORPUSCULAR VOLUME 97.2 fl (82.0-101.0); MEAN PLATELET VOLUME 9.1 fl (7.4-10.4); MONOCYTES % 17.7 % (0.0-11.0); NEUTROPHIL # 3.5 10^3/ul (1.6-7.5); NEUTROPHILS % 60.2 % (39.0-77.0); PLATELET COUNT 134 10^3/UL (140-415); RED BLOOD COUNT 2.84 10^6/ul (4.70-6.10); RED CELL DISTRIBUTION WIDTH 15.7 % (11.5-14.5)
[2018-01-16 06:23] LABS: WHITE BLOOD COUNT 5.9 10^3/ul (4.8-10.8)
[2018-01-16 06:52] LABS: ANION GAP 16 (8-16); BLOOD UREA NITROGEN 54 mg/dl (7-20); CALCIUM 8.5 mg/dl (8.4-10.2); CARBON DIOXIDE 27 mmol/L (21-31); CHLORIDE 103 mmol/L (97-110); CREATININE 9.13 mg/dl (0.61-1.24); GLUCOSE 95 mg/dl (70-220); POTASSIUM 4.8 mmol/L (3.5-5.1); SODIUM 141 mmol/L (135-144)
[2018-01-16] MEDS: VALPROIC ACID 250 MG CAP PO ×2 (08:04→21:34)
[2018-01-16] MEDS: ASPIRIN (EC) 81 MG TAB PO (08:05)
[2018-01-16] MEDS: CALCIUM ACETATE 667 MG CAP PO ×2 (08:05→21:34)
[2018-01-16] MEDS: ATORVASTATIN 40 MG TAB PO (21:33)
[2018-01-17] MEDS: DIPHENHYDRAMINE 25 MG CAP PO ×2 (00:57→09:44)
[2018-01-17] MEDS: HYDROmorphONE 1 MG/ML SYG IV ×11 (00:58→22:57)
[2018-01-17 05:43] LABS: ADD MAN DIFF? NO
[2018-01-17 05:45] LABS: WHITE BLOOD COUNT 6.4 10^3/ul (4.8-10.8)
[2018-01-17 05:45] LABS: BASOPHILS % 0.3 % (0.0-2.0); EOSINOPHILS % 15.1 % (0.0-7.0); HEMATOCRIT 26.9 % (42.0-52.0); HEMOGLOBIN 8.4 g/dl (14.0-18.0); LYMPHOCYTES # 1.3 10^3/ul (0.8-2.9); LYMPHOCYTES % 19.4 % (15.0-51.0); MEAN CORPUSCULAR HEMOGLOBIN 30.8 pg (29.0-33.0); MEAN CORPUSCULAR HGB CONC 31.2 g/dl (32.0-37.0); MEAN CORPUSCULAR VOLUME 98.5 fl (82.0-101.0); MEAN PLATELET VOLUME 9.3 fl (7.4-10.4); MONOCYTE # 1.1 10^3/ul (0.3-0.9); NEUTROPHIL # 3.1 10^3/ul (1.6-7.5); NEUTROPHILS % 47.6 % (39.0-77.0); PLATELET COUNT 121 10^3/UL (140-415); RED BLOOD COUNT 2.73 10^6/ul (4.70-6.10)
[2018-01-17 06:10] LABS: ANION GAP 15 (8-16); BLOOD UREA NITROGEN 71 mg/dl (7-20); CALCIUM 8.9 mg/dl (8.4-10.2); CARBON DIOXIDE 27 mmol/L (21-31); CHLORIDE 104 mmol/L (97-110); CREATININE 11.98 mg/dl (0.61-1.24); GLUCOSE 88 mg/dl (70-220); POTASSIUM 4.8 mmol/L (3.5-5.1); SODIUM 141 mmol/L (135-144)
[2018-01-17] MEDS: VALPROIC ACID 250 MG CAP PO ×2 (08:23→20:30)
[2018-01-17] MEDS: CALCIUM ACETATE 667 MG CAP PO ×2 (08:24→20:22)
[2018-01-17] MEDS: ASPIRIN (EC) 81 MG TAB PO (08:24)
[2018-01-17] MEDS: HEPARIN 1000 UNITS/ML 10 ML INJ CATHETER (16:38)
[2018-01-17] MEDS: EPOETIN 3000 UNITS/1 ML INJ (ESRD) SC (17:00)
[2018-01-17] MEDS: GENTAMICIN 0.1% CREAM 15GM TUBE TOP ×2 (17:45→23:00)
[2018-01-17] MEDS ORDERED: VANCOMYCIN IV PER PHARMACY XX (18:30)
[2018-01-17] MEDS: CEFEPIME 1GM/50 ML (PMX) 50 ML IVPB (18:36)
[2018-01-17] MEDS: VANCOMYCIN 1.75 GM in SOD CHLORIDE 0.9% 500 ML IVPB (20:18)
[2018-01-17] MEDS: ATORVASTATIN 40 MG TAB PO (20:21)
[2018-01-18] MEDS: HYDROmorphONE 1 MG/ML SYG IV ×11 (00:58→23:54)
[2018-01-18 05:11] LABS: ADD MAN DIFF? NO
[2018-01-18 05:14] LABS: BASOPHILS % 0.4 % (0.0-2.0); EOSINOPHILS # 0.9 10^3/ul (0.0-0.5); EOSINOPHILS % 12.8 % (0.0-7.0); HEMATOCRIT 29.1 % (42.0-52.0); HEMOGLOBIN 8.9 g/dl (14.0-18.0); LYMPHOCYTES # 1.1 10^3/ul (0.8-2.9); LYMPHOCYTES % 14.6 % (15.0-51.0); MEAN CORPUSCULAR HEMOGLOBIN 30.9 pg (29.0-33.0); MEAN CORPUSCULAR HGB CONC 30.6 g/dl (32.0-37.0); MEAN PLATELET VOLUME 8.8 fl (7.4-10.4); MONOCYTE # 1.3 10^3/ul (0.3-0.9); NEUTROPHILS % 54.5 % (39.0-77.0); PLATELET COUNT 119 10^3/UL (140-415); RED BLOOD COUNT 2.88 10^6/ul (4.70-6.10); RED CELL DISTRIBUTION WIDTH 15.9 % (11.5-14.5)
[2018-01-18 05:14] LABS: WHITE BLOOD COUNT 7.3 10^3/ul (4.8-10.8)
[2018-01-18 06:00] LABS: ANION GAP 16 (8-16); BLOOD UREA NITROGEN 51 mg/dl (7-20); CALCIUM 8.5 mg/dl (8.4-10.2); CARBON DIOXIDE 27 mmol/L (21-31); CHLORIDE 102 mmol/L (97-110); CREATININE 10.25 mg/dl (0.61-1.24); GLUCOSE 89 mg/dl (70-220); SODIUM 140 mmol/L (135-144)
[2018-01-18] MEDS: GENTAMICIN 0.1% CREAM 15GM TUBE TOP ×2 (08:05→21:32)
[2018-01-18] MEDS: ASPIRIN (EC) 81 MG TAB PO (10:01)
[2018-01-18] MEDS: CALCIUM ACETATE 667 MG CAP PO ×2 (10:01→21:37)
[2018-01-18] MEDS: VALPROIC ACID 250 MG CAP PO ×2 (10:02→21:37)
[2018-01-18] MEDS: DIPHENHYDRAMINE 25 MG CAP PO (13:18)
[2018-01-18] MEDS: CEFEPIME 1GM/50 ML (PMX) 50 ML IVPB (18:24)
[2018-01-18] MEDS: ATORVASTATIN 40 MG TAB PO (21:37)
[2018-01-19] MEDS: HYDROmorphONE 1 MG/ML SYG IV ×9 (01:49→22:56)
[2018-01-19 06:12] LABS: ADD MAN DIFF? NO
[2018-01-19 06:24] LABS: BASOPHIL # 0.1 10^3/ul (0.0-0.1); BASOPHILS % 0.7 % (0.0-2.0); EOSINOPHILS # 1.4 10^3/ul (0.0-0.5); LYMPHOCYTES # 1.2 10^3/ul (0.8-2.9); LYMPHOCYTES % 15.7 % (15.0-51.0); MEAN CORPUSCULAR HEMOGLOBIN 30.8 pg (29.0-33.0); MEAN CORPUSCULAR VOLUME 99.3 fl (82.0-101.0); MEAN PLATELET VOLUME 8.8 fl (7.4-10.4); MONOCYTE # 1.1 10^3/ul (0.3-0.9); MONOCYTES % 14.4 % (0.0-11.0); NEUTROPHIL # 3.8 10^3/ul (1.6-7.5); NEUTROPHILS % 50.4 % (39.0-77.0); PLATELET COUNT 116 10^3/UL (140-415); RED BLOOD COUNT 2.92 10^6/ul (4.70-6.10); RED CELL DISTRIBUTION WIDTH 15.9 % (11.5-14.5)
[2018-01-19 06:24] LABS: WHITE BLOOD COUNT 7.5 10^3/ul (4.8-10.8)
[2018-01-19 06:33] LABS: ANION GAP 19 (8-16); BLOOD UREA NITROGEN 68 mg/dl (7-20); CALCIUM 8.8 mg/dl (8.4-10.2); CARBON DIOXIDE 22 mmol/L (21-31); CHLORIDE 105 mmol/L (97-110); CREATININE 13.24 mg/dl (0.61-1.24); GLUCOSE 79 mg/dl (70-220); POTASSIUM 5.8 mmol/L (3.5-5.1); SODIUM 140 mmol/L (135-144)
[2018-01-19 06:37] LABS: VANCOMYCIN,RANDOM 27.3 ug/ml
[2018-01-19] MEDS: ASPIRIN (EC) 81 MG TAB PO (08:04)
[2018-01-19] MEDS: CALCIUM ACETATE 667 MG CAP PO ×2 (08:04→20:13)
[2018-01-19] MEDS: VALPROIC ACID 250 MG CAP PO ×2 (08:05→20:14)
[2018-01-19] MEDS: GENTAMICIN 0.1% CREAM 15GM TUBE TOP ×2 (08:05→20:14)
[2018-01-19] MEDS: DIPHENHYDRAMINE 25 MG CAP PO (15:54)
[2018-01-19] MEDS: CEFEPIME 1GM/50 ML (PMX) 50 ML IVPB (20:12)
[2018-01-19] MEDS: ATORVASTATIN 40 MG TAB PO (20:13)
[2018-01-19] MEDS: EPOETIN 3000 UNITS/1 ML INJ (ESRD) SC (23:01)
[2018-01-20] MEDS: HYDROmorphONE 1 MG/ML SYG IV ×7 (01:35→23:24)
[2018-01-20] MEDS: ASPIRIN (EC) 81 MG TAB PO (08:28)
[2018-01-20] MEDS: VALPROIC ACID 250 MG CAP PO ×2 (08:28→20:56)
[2018-01-20] MEDS: GENTAMICIN 0.1% CREAM 15GM TUBE TOP ×2 (08:28→21:01)
[2018-01-20] MEDS: CALCIUM ACETATE 667 MG CAP PO ×2 (08:28→20:57)
[2018-01-20] MEDS: CEFEPIME 1GM/50 ML (PMX) 50 ML IVPB (17:37)
[2018-01-20] MEDS: DIPHENHYDRAMINE 25 MG CAP PO (17:37)
[2018-01-20] MEDS: ATORVASTATIN 40 MG TAB PO (20:57)
[2018-01-21] MEDS: HYDROmorphONE 1 MG/ML SYG IV ×5 (01:39→12:56)
[2018-01-21 06:00] LABS: VANCOMYCIN,RANDOM 18.3 ug/ml
[2018-01-21] MEDS: CALCIUM ACETATE 667 MG CAP PO (09:08)
[2018-01-21] MEDS: VALPROIC ACID 250 MG CAP PO (09:08)
[2018-01-21] MEDS: ASPIRIN (EC) 81 MG TAB PO (09:08)
[2018-01-21] MEDS: GENTAMICIN 0.1% CREAM 15GM TUBE TOP (09:09)
[2018-01-21] MEDS ORDERED: FUROSEMIDE 20 MG INJ IV (11:00)
[2018-01-21 12:00] LABS: CRYPTOCOCCAL ANTIGEN - SOURCE SERUM
[2018-01-21] MEDS: HYDROCODONE/APAP (5/325) TAB PO (17:13)
[2018-01-21] MEDS ORDERED: VANCOMYCIN 1 GM 250 ML IVPB (22:00)
== END 2018-01-21 18:49 | disposition home or self-care (01) | DRG 853 ==
LOC: 2NE 12-26 03:38 → ICU 01-08 12:00 → 6WM 01-09 13:35 → E/R 09:46 → MS3 12:37
PROC: 0BNJ4ZZ Release Left Lower Lung Lobe, Percutaneous Endoscopic Approach (ICD-10-PCS; principal; 2018-01-08 08:30)
PROC: 0BNG4ZZ Release Left Upper Lung Lobe, Percutaneous Endoscopic Approach (ICD-10-PCS; 2018-01-08 08:30)
PROC: 5A1D70Z Performance of Urinary Filtration, Intermittent, Less than 6 Hours Per Day (ICD-10-PCS; 2018-01-08 08:44)
PROC: 30233N1 Transfusion of Nonautologous Red Blood Cells into Peripheral Vein, Percutaneous Approach (ICD-10-PCS; 2018-01-08 08:44)
PROC: 0W9B3ZZ Drainage of Left Pleural Cavity, Percutaneous Approach (ICD-10-PCS; 2018-01-08 08:44)
PROC: 0W9B3ZZ Drainage of Left Pleural Cavity, Percutaneous Approach (ICD-10-PCS; 2018-01-08 08:44)
DX: A41.9 Sepsis, unspecified organism (principal); J18.9 Pneumonia, unspecified organism; T80.212A Local infection due to central venous catheter, initial encounter; N18.6 End stage renal disease; I12.0 Hypertensive chronic kidney disease with stage 5 chronic kidney disease or end stage renal disease; J90 Pleural effusion, not elsewhere classified; Z99.2 Dependence on renal dialysis; Z95.1 Presence of aortocoronary bypass graft; E78.5 Hyperlipidemia, unspecified; E87.70 Fluid overload, unspecified; Z86.73 Personal history of transient ischemic attack (TIA), and cerebral infarction without residual deficits; G40.909 Epilepsy, unspecified, not intractable, without status epilepticus; F17.210 Nicotine dependence, cigarettes, uncomplicated; D64.9 Anemia, unspecified; G47.00 Insomnia, unspecified; E87.5 Hyperkalemia; J94.1 Fibrothorax; T65.891A Toxic effect of other specified substances, accidental (unintentional), initial encounter; L23.1 Allergic contact dermatitis due to adhesives; Y92.239 Unspecified place in hospital as the place of occurrence of the external cause; B95.8 Unspecified staphylococcus as the cause of diseases classified elsewhere
CPT/HCPCS: 32555; 36415; 36430; 71045; 71250; 76604; 76942; 80048; 80053; 80164; 80202; 82550; 82553; 83605; 83735; 84100; 84157; 84484; 85025; 85610; 85730; 86480; 86635; 86641; 86698; 86703; 86850; 86900; 86901; 86920; 87040; 87070; 87075; 87081; 87102; 87116; 87340; 88305; 89051; 90935; 93005; 93306; 93923; 93970; 95819; 96374; 96375; 99291-25

== ENCOUNTER 2018-01-27 13:08 | Emergency (ER) | payer OTHER ==
[2018-01-27 15:24] LABS: WHITE BLOOD COUNT 8.4 10^3/ul (4.8-10.8)
[2018-01-27 15:24] LABS: HEMATOCRIT 27.4 % (42.0-52.0); HEMOGLOBIN 8.5 g/dl (14.0-18.0); MEAN CORPUSCULAR HEMOGLOBIN 30.8 pg (29.0-33.0); MEAN CORPUSCULAR VOLUME 99.3 fl (82.0-101.0); MEAN PLATELET VOLUME 8.5 fl (7.4-10.4); PLATELET COUNT 112 10^3/UL (140-415); RED BLOOD COUNT 2.76 10^6/ul (4.70-6.10); RED CELL DISTRIBUTION WIDTH 16.8 % (11.5-14.5)
[2018-01-27 15:42] LABS: ADD MAN DIFF? YES
[2018-01-27 15:48] LABS: ANION GAP 15 (8-16); BLOOD UREA NITROGEN 27 mg/dl (7-20); CALCIUM 8.8 mg/dl (8.4-10.2); CARBON DIOXIDE 21 mmol/L (21-31); CHLORIDE 105 mmol/L (97-110); CREATININE 7.07 mg/dl (0.61-1.24); GLUCOSE 86 mg/dl (70-220); POTASSIUM 4.4 mmol/L (3.5-5.1); SODIUM 137 mmol/L (135-144)
[2018-01-27 16:42] LABS: ANISOCYTOSIS 1+ (0-0); BAND NEUTROPHILS % (M) 1 % (0-4); EOSINOPHILS % (M) 22 % (0-7); LYMPHOCYTES #M 1.7 10^3/ul (0.8-2.9); LYMPHOCYTES % (M) 21 % (15-51); MONOCYTE #M 0.5 10^3/ul (0.3-0.9); MONOCYTES % (M) 6 % (0-11); PLATELET ESTIMATE DECREASED; POIKILOCYTOSIS 1+ (0-0); POLYCHROMASIA 2+ (0-0); SEG NEUT #M 4.2 10^3/ul (1.6-7.5); SEGMENTED NEUTROPHILS (M) % 50 % (39-77); SMUDGE%M 8 % (0-0)
== END 2018-01-27 16:59 | disposition home or self-care (01) ==
LOC: E/R 13:08
DX: Z48.01 Encounter for change or removal of surgical wound dressing (principal); I12.0 Hypertensive chronic kidney disease with stage 5 chronic kidney disease or end stage renal disease; N18.6 End stage renal disease; Z79.82 Long term (current) use of aspirin; Z95.1 Presence of aortocoronary bypass graft; Z99.2 Dependence on renal dialysis
CPT/HCPCS: 36415; 80048; 85025; 99284-25

== ENCOUNTER 2018-09-12 13:21 | Day surgery (SDC) | payer OTHER ==
[2018-09-12] MEDS ORDERED: SOD CHLORIDE 0.9% 500 ML IV (14:00)
[2018-09-12 14:14] LABS: ADD MAN DIFF? NO
[2018-09-12 14:16] LABS: BASOPHILS % 0.4 % (0.0-2.0); EOSINOPHILS # 0.4 10^3/ul (0.0-0.5); HEMATOCRIT 31.8 % (42.0-52.0); HEMOGLOBIN 9.9 g/dl (14.0-18.0); MEAN CORPUSCULAR HEMOGLOBIN 32.9 pg (29.0-33.0); MEAN CORPUSCULAR HGB CONC 31.1 g/dl (32.0-37.0); MEAN CORPUSCULAR VOLUME 105.6 fl (82.0-101.0); MEAN PLATELET VOLUME 9.5 fl (7.4-10.4); MONOCYTE # 1.1 10^3/ul (0.3-0.9); MONOCYTES % 20.7 % (0.0-11.0); NEUTROPHIL # 2.7 10^3/ul (1.6-7.5); NEUTROPHILS % 51.5 % (39.0-77.0); PLATELET COUNT 112 10^3/UL (140-415); RED BLOOD COUNT 3.01 10^6/ul (4.70-6.10); RED CELL DISTRIBUTION WIDTH 14.4 % (11.5-14.5)
[2018-09-12 14:16] LABS: WHITE BLOOD COUNT 5.2 10^3/ul (4.8-10.8)
[2018-09-12] MEDS ORDERED: THROMBIN 5000 UNIT VIAL (14:26)
[2018-09-12] MEDS ORDERED: HEPARIN 1000 UNITS/ML 10 ML INJ (14:26)
[2018-09-12] MEDS ORDERED: LIDOCAINE 1% (MPF) 30 ML INJ (14:26)
[2018-09-12] MEDS ORDERED: GELATIN SIZE 100 SPONGE (14:27)
[2018-09-12 14:34] LABS: HOLD TRANSMISSIONS 1
[2018-09-12 14:37] LABS: INR 1.02; PROTIME 13.5 Sec (11.9-14.9); PT RATIO 1.1
[2018-09-12 14:41] LABS: ANION GAP 11 (5-13); CALCIUM 9.7 mg/dl (8.4-10.2); CARBON DIOXIDE 26 mmol/L (21-31); CHLORIDE 100 mmol/L (97-110); Estimated GFR 10 mL/min (>60); GLUCOSE 85 mg/dl (70-220); POTASSIUM 3.7 mmol/L (3.5-5.1); SODIUM 137 mmol/L (135-144)
[2018-09-12 14:42] LABS: BLOOD UREA NITROGEN 30 mg/dl (7-20); CREATININE 6.04 mg/dl (0.61-1.24)
[2018-09-12 14:49] LABS: PARTIAL THROMBOPLASTIN TIME 35.1 Sec (23.0-35.0)
== END 2018-09-12 16:00 | disposition home or self-care (01) ==
LOC: SDS 13:21
DX: I12.0 Hypertensive chronic kidney disease with stage 5 chronic kidney disease or end stage renal disease (principal); N18.6 End stage renal disease; E78.00 Pure hypercholesterolemia, unspecified
CPT/HCPCS: 36830; 80048; 85025; 85610; 85730